=== PATIENT | female | born 1980 | race Caucasian/White ===

== ENCOUNTER 2023-08-29 10:33 | Emergency (ER) | payer OTHER, BC, MEDICAID, SELFPAY ==
[2023-08-29 10:55] VITALS: BP 108/64; PULSE 95; RESP 18; TEMP 36.5; O2SAT 98
[2023-08-29 11:25] VITALS: RESP 20
--- NOTE | 2023-08-29 12:27 | ED_ITS ---
HPI - Extremity Injury (Lower) General Chief Complaint: Extremity Injury, Lower Stated Complaint: right leg pain Time Seen by Provider: 08/29/23 12:11 History of Present Illness HPI Narrative: Pt was stepping off of wagon at [employer] yesterday and as soon as her toe touched the ground she felt a pop in her calf followed by immediate pain. Pt is able to flex and extend her foot. Pt says it is very painful to bear weight. Related Data Allergies Allergy/AdvReac Type Severity Reaction Status Date / Time carbamazepine Allergy Severe LIP Verified 08/29/23 11:31 SWELLING Review of Systems Review of Systems: All systems reviewed & are unremarkable except as noted in HPI and below Exam Const: General: healthy appearing and no acute distress Nutritional Appearance: well nourished Orientation/consciousness: patient oriented x3 Limitations: no limitations Eyes: Conjunctivae: conjunctivae normal Pupils: Equal, round and reactive pupils present EOM: EOMs intact bilaterally Neck: Neck: normal visual inspection Chest: Chest palpation & inspection: normal inspection of the chest Resp: Effort & Inspection: normal respiratory effort Cardio: Rate: regular rate Rhythm: regular rhythm Skin: General skin exam: normal color Rashes: no rashes Wounds: no wounds Neuro: General: patient oriented x3 and moves all extremities Speech: normal speech Extrem: Other: tender to calf but no bruising or swelling, Silva's test neg. Pt able to flex/extend foot. Psych: Mental Status: mental status grossly normal Affect: normal affect Attitude: cooperative Course Vital Signs Vital signs: Vital Signs Temperature 97.7 F 08/29/23 10:55 Pulse Rate 95 08/29/23 10:55 Respiratory Rate 18 08/29/23 10:55 Blood Pressure 108/64 08/29/23 10:55 Pulse Oximetry 98 08/29/23 10:55 Oxygen Delivery Room Air 08/29/23 10:55 Temperature 97.7 F 08/29/23 10:55 Pulse Rate 95 08/29/23 10:55 Respiratory Rate 20 08/29/23 11:25 Blood Pressure 108/64 08/29/23 10:55 Pulse Oximetry 98 08/29/23 10:55 Oxygen Delivery Room Air 08/29/23 10:55 MDM - Extremity Injury (Lower) MDM Narrative Medical decision making narrative: ssems like a calf strain but does not seem like achelles injury, Pt had recent doppler to rule out DVT prior to this issue. Will wrap and give toradol and crutches and have follow up if not improved for imaging. Discharge Plan Discharge Clinical Impression: Calf pain Patient Disposition: Home, Self-Care Condition: Stable Instructions: Antibiotic Form, Muscle Strain (DC) Prescriptions: New naproxen [Naprosyn] 500 mg tablet 500 mg PO BID Qty: 20 0RF hydrocodone-acetaminophen 5-325 mg tablet 1 tablet PO Q6H PRN (Reason: pain) Qty: 10 0RF Follow-up/Referrals: Demario James MD [Physician] - PHYSICIAN,DENTAL TECHNICIAN APPRENTICE [Non-Staff] - Dev Marie MD [Physician] -
[2023-08-29] MEDS: KETOROLAC 30 MG/ML VIAL (*BKC) IM (12:32)
== END 2023-08-29 12:54 | disposition home or self-care (01) ==
LOC: ANHED 12:38
PROVIDERS: Emergency Provider Emergency Medicine
DX: M79.661 Pain in right lower leg (principal)
CPT/HCPCS: 96372; 99283; J1885

== ENCOUNTER 2024-10-01 04:33 | Emergency (ER) | payer OTHER, SELFPAY ==
--- NOTE | ~2024-10-01 | CT_ITS ---
Non-contrast CT scan of the Abdomen and Pelvis Clinical indication: Abdominal pain Technique: 2.5 mm axial scans were obtained through the abdomen and pelvis without intravenous or or al contrast. Dose reduction technique was used on this scan by utilizing automated exposure control a nd iterative reconstruction technique. The dose-length product (DLP) was 571.34 mGy-cm. Findings: Images through the lung bases reveal no abnormalities. There is no evidence of renal or ureteral calculi. The kidneys and the ureters are nondilated. The liver, spleen, pancreas, gallbladder, and adrenals appear normal. There is no aortic aneurysm. There is no evidence of bowel obstruction. Images through the pelvis were performed. There is no evidence of ascites or lymphadenopathy. Urinary bladder unremarkable. No pelvic mass seen. Impression: No significant abnormality seen. Reviewed, dictated and finalized at [facility]. RLY COMPANION Impression: No significant abnormality seen.
[2024-10-01 04:36] VITALS: BP 133/85; PULSE 92; RESP 19; TEMP 36.4; O2SAT 99
--- NOTE | 2024-10-01 05:10 | ED.GENADULT ---
HPI - General Adult General Chief complaint: Abdominal Pain Stated complaint: Epigastric pain Time Seen by Provider: 10/01/24 04:54 History of Present Illness HPI narrative: 53-year-old female presents emergency department with chief complaint of abdominal pain. Patient reports that around 1:00 a.m. she started patient states pain is in epigastric and right upper quadrant area patient reports she has had some nausea the patient denies any diarrhea denies constipation reports she has had a hysterectomy and appendectomy previously Related Data Allergies Allergy/AdvReac Type Severity Reaction Status Date / Time carbamazepine Allergy Severe LIP Verified 08/29/23 11:31 SWELLING Review of Systems Review of Systems: A 10 system review of systems was completed on the patient and is negative except for what is stated in the HPI. Nursing and ancillary documentation was reviewed. Exam Narrative: GENERAL: Well-appearing, well-nourished, and in no acute distress. HEAD: Normocephalic, atraumatic. EYES: PERRLA and EOMI. ENT: Nares clear, no rhinorrhea or epistaxis. Mucous membranes moist. NECK: Supple. CHEST: Clear to auscultation. No respiratory distress. HEART: Regular rate and rhythm. No murmur heard. Normal peripheral pulses. ABDOMEN: Soft, tenderness to palpation the epigastric and right upper quadrant, nondistended, normal active bowel sounds. EXTREMITIES: Normal range of motion. No edema. SKIN: Warm, dry, no rash. NEURO: No focal deficits. Alert and oriented x3. PSYCH: Normal mood and affect. Course Vital Signs Vital signs: Vital Signs Temperature 36.4 C 10/01/24 04:36 Pulse Rate 92 10/01/24 04:36 Respiratory Rate 19 10/01/24 04:36 Blood Pressure 133/85 10/01/24 04:36 Pulse Oximetry 99 10/01/24 04:36 Oxygen Delivery Room Air 10/01/24 04:36 Temperature 36.4 C 10/01/24 04:36 Pulse Rate 92 10/01/24 04:36 Respiratory Rate 19 10/01/24 04:36 Blood Pressure 133/85 10/01/24 04:36 Pulse Oximetry 99 10/01/24 04:36 Oxygen Delivery Room Air 10/01/24 04:36 Medical Decision Making [facility] Narrative Medical decision making narrative: Differential diagnosis is gastritis, cholecystitis, pancreatitis, intra-abdominal infection, CT scan of the abdomen pelvis showed no acute abnormality Laboratory studies showed normal CBC normal CMP urinalysis was within normal limits Patient was started on Carafate Protonix lb given a prescription for Zofran Vital Signs Vital Signs: Vital Signs Temperature 36.4 C 10/01/24 04:36 Pulse Rate 92 10/01/24 04:36 Respiratory Rate 19 10/01/24 04:36 Blood Pressure 133/85 10/01/24 04:36 Pulse Oximetry 99 10/01/24 04:36 Oxygen Delivery Room Air 10/01/24 04:36 Temperature 36.4 C 10/01/24 04:36 Pulse Rate 92 10/01/24 04:36 Respiratory Rate 19 10/01/24 04:36 Blood Pressure 133/85 10/01/24 04:36 Pulse Oximetry 99 10/01/24 04:36 Oxygen Delivery Room Air 10/01/24 04:36 Lab Data 10/01/24 05:22 10/01/24 05:22 Labs: Lab Results 10/01/24 10/01/24 Range/Units 05:22 06:15 WBC 8.8 (4.5-10.0) K/mm3 RBC 4.80 (4.2-5.4) M/mm3 Hgb 15.1 H (12.0-15.0) g/dL Hct 45.1 (37.0-47.0) % MCV 94.0 (80-100) fl MCH 31.5 (26-34) pg MCHC 33.5 (32-36) g/dl RDW 13.1 (11.5-14.5) % Plt Count 267 (150-375) k/mm3 MPV 11.5 H (7.4-10.4) fl Immature Gran % (Auto) 0.5 (0-0.5) % Neut % (Auto) 65.4 (45.5-73.1) % Lymph % (Auto) 24.6 (18.3-44.2) % [place] % (Auto) 6.5 (2.6-8.5) % Eos % (Auto) 2.4 (0-4.4) % Baso % (Auto) 0.6 (0.2-1.2) % Lymph # (Auto) 2.17 (0.9-3.2) K/mm3 [place] # (Auto) 0.6 (0.1-0.6) K/mm3 Eos # (Auto) 0.2 (0-0.3) K/mm3 Baso # (Auto) 0.1 (0.0-0.1) K/mm3 Abs Immat Gran (auto) 0.04 H (0.00-0.031) K/mm3 Absolute Neuts (auto) 5.8 (1.3-6.7) K/mm3 Absolute Nucleated RBC 0.000 (0.0-0.012) K/mm3 Nucleated RBC % 0.0 (0.0-0.2) % Sodium 139 (137-145) mmol/L Potassium 4.3 (3.4-5.0) mmol/L Chloride 110 H (98-107) mmol/L Carbon Dioxide 17 L (22-30) mmol/L Anion Gap 12 (4-12) mmol/L BUN 12 (7-17) mg/dL Creatinine 0.80 (0.7-1.0) mg/dL Estim Creat Clear Calc 74 ml/min Estimated GFR > 60 (59 - ) Glucose 115 H (65-110) mg/dL Lactic Acid 1.4 (0.7-2.0) mmol/L Calcium 9.3 (8.4-10.2) mg/dL Total Bilirubin 0.2 (0.2-1.3) mg/dL AST 24 (14-36) U/L ALT 30 (6-35) U/L Alkaline Phosphatase 95 (38-126) U/L Total Protein 8.0 (6.3-8.2) g/dL Albumin 4.4 (3.5-5.1) g/dL Lipase 81 (23-300) U/L Urine Color Yellow (Yellow) Urine Appearance Clear (Clear) Urine pH 5.0 (5.0-9.0) Ur Specific [place] 1.007 (1.001-1.035) Urine Protein Negative (Negative) mg/dL Urine Glucose (UA) Negative (Negative) mg/dL Urine Ketones Negative (Negative) mg/dL Ur Blood (Man) Negative (Negative) Urine Nitrate Negative (Negative) Urine Bilirubin Negative (Negative) Urine Urobilinogen 0.2 (<2.0) mg/dL Leukocyte Esterase Rfl Negative (Negative) LEISA/UL Discharge Plan Discharge Clinical Impression: Gastritis, Abdominal pain Patient Disposition: Home, Self-Care Condition: Stable Instructions: Antibiotic Form, Gastritis (ED), Abdominal Pain (ED) Prescriptions: New ondansetron 4 mg tablet,disintegrating 4 mg PO Q8H PRN (Reason: nausea and vomiting) Qty: 10 0RF sucralfate [Carafate] 1 gram tablet 1 g PO TID PRN (Reason: Epigastric pain) 10 Days Qty: 30 0RF pantoprazole [Protonix] 40 mg tablet,delayed release (DR/EC) 40 mg PO HS 28 Days Qty: 28 0RF No Action naproxen [Naprosyn] 500 mg tablet 500 mg PO BID Qty: 20 0RF hydrocodone-acetaminophen 5-325 mg tablet 1 tablet PO Q6H PRN (Reason: pain) Qty: 10 0RF Follow-up/Referrals: PHYSICIAN NOT ON STAFF,NONSTAFF [Primary Care Provider] - Time of Disposition: 06:47
[2024-10-01] MEDS: ONDANSETRON INJ 4 MG/2 ML VIAL IV PUSH (05:20)
[2024-10-01] MEDS: PANTOPRAZOLE SODIUM IV 40 MG VIAL IV PUSH (05:20)
[2024-10-01] MEDS: MORPHINE SULFATE (*CRX) 4 MG/ML INJ IV PUSH (05:20)
[2024-10-01] MEDS: SODIUM CHLORIDE 0.9% IV 1,000 ML 999 ML IV CONT (05:21)
[2024-10-01 05:39] LABS: Basophils Absolute Auto 0.1 K/mm3 (0.0-0.1); Basophils Percent Auto 0.6 % (0.2-1.2); Eosinophils Absolute Auto 0.2 K/mm3 (0-0.3); Eosinophils Percent Auto 2.4 % (0-4.4); Hematocrit 45.1 % (37.0-47.0); Hemoglobin 15.1 g/dL (12.0-15.0); Immature Granulocyte Absolute 0.04 K/mm3 (0.00-0.031); Immature Granulocyte Percent A 0.5 % (0-0.5); Lymphocytes Absolute Auto 2.17 K/mm3 (0.9-3.2); Lymphocytes Percent Auto 24.6 % (18.3-44.2); Mean Corpuscular HGB Conc 33.5 g/dl (32-36); Mean Corpuscular Hemoglobin 31.5 pg (26-34); Mean Platelet Volume 11.5 fl (7.4-10.4); Monocytes Absolute Auto 0.6 K/mm3 (0.1-0.6); Monocytes Percent Auto 6.5 % (2.6-8.5); Neutrophils Absolute Auto 5.8 K/mm3 (1.3-6.7); Neutrophils Percent Auto 65.4 % (45.5-73.1); Platelet Count Result 267 k/mm3 (150-375); Red Cell Distribution Width 13.1 % (11.5-14.5); White Blood Count 8.8 K/mm3 (4.5-10.0)
[2024-10-01 05:56] LABS: Alanine Aminotransferase 30 U/L (6-35); Albumin Level 4.4 g/dL (3.5-5.1); Alkaline Phosphatase 95 U/L (38-126); Anion Gap 12 mmol/L (4-12); Aspartate Amino Transferase 24 U/L (14-36); Bilirubin,Total 0.2 mg/dL (0.2-1.3); Blood Urea Nitrogen 12 mg/dL (7-17); Calcium 9.3 mg/dL (8.4-10.2); Carbon Dioxide 17 mmol/L (22-30); Chloride 110 mmol/L (98-107); Estimated CRCL calculation 74 ml/min; Estimated Glomerular Filt Rate > 60; Glucose 115 mg/dL (65-110); Lipase 81 U/L (23-300); Potassium 4.3 mmol/L (3.4-5.0); Sodium 139 mmol/L (137-145)
[2024-10-01 05:57] LABS: Lactic Acid Reflex 1.4 mmol/L (0.7-2.0)
[2024-10-01 06:29] LABS: Add Urine Microscopic? NO; Appearance Urine Clear (Clear); Bilirubin Urine Negative (Negative); Blood Urine Negative (Negative); Color Urine Yellow (Yellow); Glucose Urine UA Negative (Negative); Ketones Urine Negative (Negative); Leukocyte Esterase Ur Negative LEU/UL (Negative); Nitrate Urine Negative (Negative); Protein Urine Negative (Negative); Specific Grav Ur 1.007 (1.001-1.035); Urobilinogen Urine 0.2 mg/dL (<2.0)
== END 2024-10-01 07:18 | disposition home or self-care (01) ==
PROVIDERS: Emergency Provider Emergency Medicine
DX: K29.70 Gastritis, unspecified, without bleeding (principal)
CPT/HCPCS: 36415; 74176; 80053; 81003; 83605; 83690; 85025; 96361; 96374; 96375; 99284; J2270; J2405; J2470; J7030

== ENCOUNTER 2025-05-08 15:34 | Outpatient (CLI) | payer OTHER, SELFPAY ==
--- NOTE | ~2025-05-08 | MR_ITS ---
MRI of the lumbar spine Clinical History: Back pain, sciatica Technique: Axial T2-weighted images, and sagittal T1-weighted, T2-weighted, and T2 fat-sat images wer e acquired. Findings: There is no fracture or subluxation lumbar spine. Vertebral bodies maintain normal height a nd alignment. No bone marrow signal abnormality seen. At L1-L2, L2-L3, L3-L4, intervertebral discs maintain normal signal and position. No disc bulge or he rniation at these levels. There is moderate facet arthropathy levels. No spinal canal stenosis or sadnra ral foraminal narrowing at these levels. At L4-L5, there is mild disc desiccation with mild disc bulge. No spinal canal stenosis or neural for aminal narrowing. At L5-S1, there is no disc bulge or herniation. No spinal canal stenosis or neural foraminal narrowin g. Paravertebral soft tissues are unremarkable. Impression: Minimal degenerative spondylosis, as above. Reviewed, dictated and finalized at location . Impression: Minimal degenerative spondylosis, as above.
== END 2025-05-08 15:35 | disposition home or self-care (01) ==
LOC: GOSHIMG 15:35
PROVIDERS: PCP Nurse Practitioner; Visit Provider Nurse Practitioner
DX: M54.40 Lumbago with sciatica, unspecified side (principal); N39.8 Other specified disorders of urinary system; R20.0 Anesthesia of skin; R20.2 Paresthesia of skin
CPT/HCPCS: 72148